=== PATIENT | female | born 1990 | race Caucasian/White ===

== ENCOUNTER 2017-05-16 17:25 | Emergency (ER) | payer SELFPAY ==
[~2017-05-16] VITALS: Ht 152.4 cm; Wt 64.0 kg
[2017-05-16] MEDS ORDERED: PRE-NATAL PO (18:36)
[2017-05-16 18:43] LABS: URINE BILIRUBIN - DIPSTICK NEGATIVE (NEGATIVE); URINE BLOOD DIPSTICK NEGATIVE (NEGATIVE); URINE CLARITY CLEAR; URINE COLOR YELLOW; URINE GLUCOSE - DIPSTICK NEGATIVE (NEGATIVE); URINE KETONE NEGATIVE (NEGATIVE); URINE LEUK ESTERASE NEGATIVE (NEGATIVE); URINE NITRITE - DIPSTICK NEGATIVE (Negative); URINE PH 6.5 (4.5-8.0); URINE PROTEIN - DIPSTICK NEGATIVE (NEG-TRACE); URINE SPECIFIC GRAVITY 1.025; URINE UROBILINOGEN - DIPSTICK 0.2 E.U./dL (0.2)
[2017-05-16 18:51] LABS: HEMATOCRIT 39.9 % (37.0-47.0); HEMOGLOBIN 13.1 g/dl (12.0-16.0); IMMATURE GRANULOCYTES 0.2 % (0.0-1.0); MEAN CELL VOLUME 92.1 fL CALC (80.0-100.0); MEAN CORPUSCULAR HGB 30.3 pG CALC (26.0-32.0); MEAN CORPUSCULAR HGB CONC 32.8 g/L CALC (32.0-36.0); NEUT# 6.42 thou/uL (2.00-7.15); RED BLOOD COUNT 4.33 mill/uL (4.20-5.60); RED CELL DISTRI WIDTH 12.3 % (11.5-15.5)
[2017-05-16 18:58] LABS: ALBUMIN 3.9 g/dL (3.2-5.0); ALKALINE PHOSPHATASE 88 u/l (38-126); ANION GAP 16 (6-22 (CALC)); BILIRUBIN, TOTAL 0.4 mg/dL (0.0-1.4); BUN 16 mg/dL (7-17); BUN/CREATININE RATIO 21 (12-20 (CALC)); CARBON DIOXIDE 24 mmol/l (22-30); CHLORIDE 105 mmol/l (95-108); CREATININE 0.8 mg/dL (0.5-1.0); GFR > 60 ML/MIN (>=60 (CALC)); GFR FOR AFR.AMER. > 60 ML/MIN (>=60 (CALC)); POTASSIUM 3.7 mmol/l (3.5-5.1); SGOT/AST 23 u/l (14-36); SGPT/ALT 39 u/l (9-52); SODIUM 141 mmol/l (137-146); TOTAL PROTEIN 6.7 g/dL (6.3-8.2)
[2017-05-16 21:24] VITALS: BP 106/66
== END 2017-05-16 21:28 | disposition home or self-care (01) | DRG 778 ==
LOC: ED 17:25
PROVIDERS: Emergency Medicine; Family Medicine
DX: O20.0 Threatened abortion (principal); F17.210 Nicotine dependence, cigarettes, uncomplicated; O26.851 Spotting complicating pregnancy, first trimester; Z3A.01 Less than 8 weeks gestation of pregnancy; R10.30 Lower abdominal pain, unspecified

== ENCOUNTER 2017-07-17 16:39 | Emergency (ER) | payer MEDICAID ==
[~2017-07-17] VITALS: Ht 152.4 cm; Wt 65.0 kg
[~2017-07-17 16:39] MED LIST: PRE-NATAL PO
[2017-07-17 17:30] VITALS: BP 128/83
== END 2017-07-17 17:30 | disposition home or self-care (01) | DRG 781 ==
LOC: ED 16:39
DX: O26.899 Other specified pregnancy related conditions, unspecified trimester (principal); R51 Headache; O99.330 Smoking (tobacco) complicating pregnancy, unspecified trimester; F17.210 Nicotine dependence, cigarettes, uncomplicated; Z3A.00 Weeks of gestation of pregnancy not specified

== ENCOUNTER 2017-08-18 20:45 | Emergency (ER) | payer MEDICAID ==
[~2017-08-18] VITALS: Ht 152.4 cm; Wt 68.8 kg
[2017-08-18 20:47] VITALS: BP 135/93
[2017-08-18] MEDS ORDERED: BENADRYL25 M1 PO (21:09)
== END 2017-08-18 21:25 | disposition home or self-care (01) ==
LOC: ED 20:45
DX: O99.342 Other mental disorders complicating pregnancy, second trimester (principal); F41.1 Generalized anxiety disorder; O99.332 Smoking (tobacco) complicating pregnancy, second trimester; F17.210 Nicotine dependence, cigarettes, uncomplicated; Z3A.19 19 weeks gestation of pregnancy